=== PATIENT | female | born 1980 | race Caucasian/White ===

== ENCOUNTER 2019-09-28 05:52 | Day surgery (SDC) | payer BC ==
[~2019-09-28] VITALS: Ht 170.2 cm; Wt 115.7 kg
--- NOTE | ~2019-09-28 | HP ---
PATIENT: KASSY FRANCIS MEDICAL RECORD: [id number] ACCOUNT: [id number] LOCATION:[facility] : 80 ADMISSION DATE: 09/28/19 PCP: No PCP HISTORY AND PHYSICAL EXAMINATION HISTORY OF PRESENT ILLNESS: Kassy is a 38-year-old female with chronic caseous tonsillitis as well as nasal polyps, turbinate hypertrophy and a lesion on the uvula. She has been admitted for bilateral endoscopic nasal polypectomy, tonsillectomy, uvulectomy, and bilateral inferior turbinate reduction. PAST MEDICAL HISTORY: includes gestational diabetes, reactive airway disease. PAST SURGICAL HISTORY: Includes in 2016. CURRENT MEDICATIONS: Amitriptyline and Zyrtec. ALLERGIES: SHE SAYS POSSIBLY CODEINE. PHYSICAL EXAMINATION: GENERAL: She is healthy-appearing, developmentally normal. FACE: Normal, symmetric, no lesions. EYES: Sclerae and conjunctivae are normal. EARS: Canals and TMs are normal. NOSE: The right side consistent with antrochoanal polyp obstructing the nasopharynx bilaterally as well. ORAL CAVITY AND OROPHARYNX: A 2+ tonsils with copious caseous material and a lesion on the uvula, possibly a papilloma. NECK: No masses, no adenopathy. CHEST: Clear. CARDIOVASCULAR: Regular rate and rhythm, no murmur. EXTREMITIES: Normal. IMPRESSION: Nasal obstruction, nasal polyposis, turbinate hypertrophy, uvula lesion, caseous tonsillitis. PLAN: Tonsillectomy, bilateral endoscopic nasal polypectomy, uvulectomy, and bilateral inferior turbinate reduction. TRANSINT:[id number] Voice Confirmation ID: [id number] DOCUMENT ID: [id number] ANA HOPE MD CC: [id number] DICTATION DATE: 09/25/19949 TRUCK SUPERVISOR: 09/25/19 113[address] [facility] [address] [place] [address]
--- NOTE | ~2019-09-28 | OP ---
PATIENT NAME: VON FRANCIS MEDICAL RECORD: [id number] :80 [facility] DATE: SURGEON: ANA ANDRADE MD DATE OF OPERATION: 09/28/2019 PREOPERATIVE DIAGNOSIS: Chronic tonsillitis uvular lesion, nasal obstruction, nasal polyp bilateral inferior turbinate hypertrophy. POSTOPERATIVE DIAGNOSES: Chronic tonsillitis, uvular lesion, nasal obstruction, nasal polyp bilateral inferior turbinate hypertrophy. PROCEDURE: Tonsillectomy, uvulectomy, endoscopic nasal polypectomy, and bilateral inferior turbinate reduction. SURGEON: Ana Andrade MD ANESTHESIA: General orotracheal. BLOOD LOSS: Less than 5 cc. SPECIMENS: Right and left tonsil, left nasal polyp, and uvula. COMPLICATIONS: None. NASAL PACKING: None. DISPOSITION: Recovery stable. DESCRIPTION OF PROCEDURE: She was brought to the operating room and placed in supine position, sedated and intubated by anesthesia. Both sides of the nose were sprayed with Afrin. The inferior turbinates and left lateral nasal wall were injected with a total of less than 1 mL of 1% lidocaine with 1:100,000 epinephrine and 2 Afrin pledgets were placed in each side of the nose. The table was turned 90 degrees. Head drape was applied. She was positioned for tonsillectomy. Using a headlight, a Martha-Yeison mouth gag was carefully inserted and elevated on a towel on his chest. The palate was examined and palpated. It was normal. She did have a lesion on the uvula consistent with a papilloma. The red rubber catheter was placed across the nose into the pharynx and grasped with tonsil clamp to retract the soft palate. Using a mirror, the nasopharynx was examined and there was a polyp emanating from the right choanae filling at least two-thirds of the nasopharynx. It was white and very firm. The red rubber catheter was removed. The right tonsil was grasped at the superior pole with a straight Allis clamp. Spatula tip cautery on a setting of 8 was used to dissect out the tonsil along its capsule, preserving the anterior and posterior tonsillar pillar. The left tonsil was removed in the same fashion. Then, the uvula was grasped. The fascia cautery was used to remove just the base of the uvula leaving the palate intact. Once this was done, the pharynx was irrigated with saline. Tonsillar fossae were agitated. Suction cautery on a setting of 18 was used to control minimal oozing. A 2-0 Vicryl was used to close the uvula defect. Martha-Yeison mouth gag was let down and removed. Then, Afrin pledgets were removed. The nose was examined using the scope. On the right side, there was obvious large polyp coming from the middle meatus, left side looked good, large inferior turbinate, but no masses or polyps. The polyp was grasped near its base and pulled from the maxillary ostia, but it was too large and firm to remove from the nasal cavity, so it was pushed back and OPERATIVE REPORT [id number] VON FRANCIS the Martha-Yeison mouth gag was reinserted and this was removed from the pharynx. The nose was then again examined. The inferior turbinates were taken down with a [place]enwald inferiorly. Suction cautery on a setting of 20 was used to stop any bleeding and both outfractured with a [place] elevator. The nose was examined. Again, the ostiomeatal complex on that right side looked good and open. Good airway on both sides. No bleeding. She was then awakened, extubated, and transported to recovery in good condition. No complications. TRANSINT:[id number] Voice Confirmation ID: [id number] DOCUMENT ID: [id number] ANA ANDRADE MD CC: [id number] DICTATION DATE: 09/28/191114 PER DIEM PHYSICAL THERAPIST ASSISTANT: 09/28/192110 [facility] 09/28/19 [facility] [address] [place] [place] [id number]
[~2019-09-28 05:52] MED LIST: ELAVIL75 MG PO; FLUTICASONE PRO16 GM NASAL; IBUPROFEN600 MG PO; PERCOCET 5-3251 TAB PO
[2019-09-28 06:19] LABS: HEMATOCRIT 43.3 % (36.0-48.0); HEMOGLOBIN 14.7 g/dL (12-16); MCH 28.9 pg (26.0-34.0); MCHC 33.9 g/dL (31.0-37.0); MCV 85.1 fL (80.0-100.0); RBC 5.09 10x6/uL (4.00-5.40); RDW 13.2 % (11.5-14.5); WBC 8.5 10x3/uL (4.8-10.8)
[2019-09-28 06:39] LABS: HCG SERUM NEGATIVE (NEGATIVE)
[2019-09-28 06:41] VITALS: BP 116/69; Ht 170.2 cm; Wt 115.7 kg
[2019-09-28 06:57] LABS: HCG URINE NEGATIVE (NEGATIVE)
[2019-09-28] MEDS ORDERED: ZYRTEC10 MG PO (07:23)
[2019-09-28] MEDS ORDERED: [UNRECOGNIZED DRUG - OTHER] (07:24)
--- NOTE | 2019-09-28 12:44 | NUR ---
DC INSTRUCTIONS GIVEN TO PT/SPOUSE. STATE UNDERSTANDING. DC'D IV CATH FULLY INTACT. WILL DC SHORTLY.
--- NOTE | 2019-09-28 12:56 | NUR ---
PT LEFT UNIT VIA WC AT 1250
== END 2019-09-28 12:50 | disposition home or self-care (01) ==
LOC: D.OPS 05:52 → D.PAN 08:00 → D.OPS 08:00
PROVIDERS: Anesthesiology; ATTEND Otolaryngology
DX: J35.01 Chronic tonsillitis (principal); J34.89 Other specified disorders of nose and nasal sinuses; J33.9 Nasal polyp, unspecified; J34.3 Hypertrophy of nasal turbinates; J45.909 Unspecified asthma, uncomplicated